=== PATIENT | female | born 1950 | race Caucasian/White ===

== ENCOUNTER 2016-12-21 14:51 | Emergency (ER) | payer MEDICARE, OTHER ==
[2013-05-24 09:14] VITALS: BMI 21.8
[~2016-12-21 14:51] MED LIST: AMANTADINE100 M1 PO; AZILECT0.5 MG PO; CO Q-10200 MG PO; MIRAPEX0.5 MG PO; NORCO 10/325 TA1 TA1 PO; OS-CAL 500+D TA1 TAB PO; SANCTURA20 MG PO; SINEMET 25/1001 TAB PO
[2016-12-21 16:48] LABS: BASOPHILS 0.2 % (0-2); EOSINOPHILS 0.9 % (0-7); HEMATOCRIT 38.1 % (36.0-48.0); HEMOGLOBIN 12.6 g/dL (12-16); IMMATURE GRANULOCYTES 0.2 % (0-5); MCH 32.8 pg (26.0-34.0); MCHC 33.1 g/dL (31.0-37.0); MCV 99.2 fL (80.0-100.0); MEAN PLATELET VOLUME 9.2 fL (7.4-10.4); NEUTROPHILS 75.7 % (40-80); PLATELET COUNT 258 10x3/uL (130-400); RBC 3.84 10x6/uL (4.00-5.40); RDW 12.8 % (11.5-14.5); WBC 12.8 10x3/uL (4.8-10.8)
[2016-12-21 19:01] LABS: LYMPH - BF 11 %; NEUT - BF 89 %
== END 2016-12-21 18:03 | disposition home or self-care (01) ==
LOC: D.ER 14:51
PROVIDERS: Emergency Medicine; Physician Assistant
DX: M70.22 Olecranon bursitis, left elbow (principal); Y93.89 Activity, other specified; G20 Parkinson's disease; I10 Essential (primary) hypertension